=== PATIENT | female | born 1975 | race Caucasian/White ===

== ENCOUNTER 2019-01-13 09:03 | Emergency (ER) | payer SELFPAY ==
[~2019-01-13] VITALS: Ht 165.1 cm; Wt 72.6 kg
[2019-01-13 09:32] VITALS: BP 123/58
[2019-01-13] MEDS ORDERED: KETOROLAC 60 MG/2 ML VIAL. IM ONE (09:45)
--- NOTE | 2019-01-13 09:54 | RAD ---
RIGHT SHOULDER , 3 VIEWS Clinical Indication: Shoulder pain after falling down steps. Comparison: None. Findings: There is no acute fracture or dislocation. The acromioclavicular and glenohumeral joints are intact. Small marginal osteophyte of the inferior humeral head. The visualized lung is clear. There is no evidence of a displaced rib fracture. There is no soft tissue abnormality. IMPRESSION: No acute fracture or dislocation. Electronically signed by: Rob Manzano MD (01/13/2019 9:51 AM) [id number]
[2019-01-13] MEDS ORDERED: IBUP-1060 PO (10:13)
[2019-01-13] MEDS ORDERED: CYCL10TA2 PO (10:13)
--- NOTE | 2019-01-13 10:13 | PHYS DOC ---
Past Medical History Past Medical History: Seizure Additional Past Medical Histor: TBI Additional Past Surgical Histo: RT ANKLE, HYSTERECTOMY Alcohol Use: Occasionally Drug Use: Marijuana Adult General Chief Complaint Chief Complaint: SHOULDER INJURY HPI HPI Patient is a 43 year old right-handed female who presents with complaining of right shoulder injury. Patient states she lost her balance around 4:30 AM and had a fall from several stairs without loss of consciousness. Patient complaining of pain in right shoulder that did not get better with rest and deci ded to come to ER. Patient rated her pain 10 over 10 but states she was able to drive to the hospital. Patient denies other injuries and focal neurodeficit. Review of Systems Review of Systems Constitutional: Denies fever or chills [] Eyes: Denies change in visual acuity, redness, or eye pain [] HENT: Denies nasal congestion or sore throat [] Respiratory: Denies cough or shortness of breath [] Cardiovascular: No additional information not addressed in HPI [] GI: Denies abdominal pain, nausea, vomiting, bloody stools or diarrhea [] : Denies dysuria or hematuria [] Musculoskeletal: Denies back pain, reports joint pain [] Integument: Denies rash or skin lesions [] Neurologic: Denies headache, focal weakness or sensory changes [] Endocrine: Denies polyuria or polydipsia [] All other systems were reviewed and found to be within normal limits, except as documented in this note. Current Medications Current Medications Current Medications Medications (Trade) Dose Ordered Sig/Talisha Start Time Stop Time Status Last Admin Dose Admin Ketorolac Tromethamine (Toradol Im) 60 mg 1X ONCE 01/13/19 09:45 01/13/19 09:46 DC 01/13/19 09:44 60 MG Allergies Allergies Allergies Coded Allergies Type Severity Reaction Last Updated Verified nitrofurantoin Allergy Intermediate Hives 01/13/19 Yes tramadol Allergy Intermediate Hives 01/13/19 Yes Physical Exam Physical Exam Constitutional: Well developed, well nourished, mild distress, non-toxic appearance. [] HENT: Normocephalic, atraumatic. Eyes: PERRLA, EOMI, conjunctiva normal, no discharge. [] Neck: Normal range of motion, no tenderness, supple, no stridor. [] Cardiovascular:Heart rate regular rhythm, no murmur [] Lungs & Thorax: Bilateral breath sounds clear to auscultation [] Abdomen: Bowel sounds normal, soft, no tenderness, no masses, no pulsatile masses. [] Skin: Warm, dry, no erythema, no rash. [] Back: No tenderness, no CVA tenderness. [] Extremities: Right upper extremity without deformity or edema or ecchymosis, patient refused to move her right upper extremity, no neurovascular deficit, marked tenderness in anterior side of shoulder, no cyanosis, no clubbing, no edema. [] Neurologic: Alert and oriented X 3, no focal deficits noted. [] Psychologic: Affect normal, judgement normal, mood normal. [] Current Patient Data Vital Signs Vital Signs Date Time Temp Pulse Resp B/P (MAP) Pulse Ox O2 Delivery O2 Flow Rate FiO2 01/13/19 09:32 98.1 94 18 123/58 (79) 96 Room Air 98.1 EKG EKG [] Radiology/Procedures Radiology/Procedures [facility] [address] [place] [address] IMAGING REPORT Signed PATIENT: CARLA VÁSQUEZ ACCOUNT: [id number] : 1975 LOCATION: ER AGE: 43 SEX: F EXAM STATUS: REG ER ORD. PHYSICIAN: SYED DARBY MD REASON: right shoulder pain after falling down steps PROCEDURE: SHOULDER 2+V RIGHT RIGHT SHOULDER , 3 VIEWS Clinical Indication: Shoulder pain after falling down steps. Comparison: None. Findings: There is no acute fracture or dislocation. The acromioclavicular and glenohumeral joints are intact. Small marginal osteophyte of the inferior humeral head. The visualized lung is clear. There is no evidence of a displaced rib fracture. There is no soft tissue abnormality. IMPRESSION: No acute fracture or dislocation. Electronically signed by: Rob Phillips MD (01/13/2019 9:51 AM) [id number] DICTATED and SIGNED BY: ROB PHILLIPS MD DATE: 01/13/19 0951 Course & Med Decision Making Course & Med Decision Making Pertinent Imaging studies reviewed. (See chart for details) Evaluation of patient in 43-year-old of a fall several of his prior to arrival to ER and shoulder injury. Patient had unremarkable x-ray of shoulder and treated with Toradol IM and shoulder sling and was advice to follow-up with her primary care physician. Dragon Disclaimer Dragon Disclaimer This electronic medical record was generated, in whole or in part, using a voice recognition dictation system. Departure Departure Impression: Primary Impression: Sprain of right shoulder Additional Impression: Fall at home Disposition: HOME, SELF-CARE (at 1009) Condition: IMPROVED Referrals: NO PCP (PCP) Patient Instructions: Shoulder Sprain Additional Instructions: Drink plenty of liquids Follow-up with your primary care physician in 3-5 days Return to ER if not getting better Apply ice on the affected area Scripts Ibuprofen (IBUPROFEN) 800 Mg Tablet 800 MG PO PRN Q8HRS PRN for INFLAMMATION, #20 TAB Prov: SYED DARBY MD 01/13/19 Cyclobenzaprine Hcl (CYCLOBENZAPRINE HCL) 10 Mg Tablet 1 TAB PO TID, #21 TAB Prov: SYED DARBY MD 01/13/19 Problem Qualifiers Primary Impression: Sprain of right shoulder Encounter type: initial encounter Shoulder sprain type: unspecified sprain Qualified Codes: S43.401A - Unspecified sprain of right shoulder joint, initial encounter Additional Impression: Fall at home Encounter type: subsequent encounter Qualified Codes: W19.XXXD - Unsp ecified fall, subsequent encounter; Y92.009 - Unspecified place in unspecified non-institutional (private) residence as the place of occurrence of the external cause SYED DARBY MD Jan 13, 2019 10:13
== END 2019-01-13 10:21 | disposition home or self-care (01) ==
LOC: ER 09:03
DX: S43.491A Other sprain of right shoulder joint, initial encounter (principal); Z90.710 Acquired absence of both cervix and uterus; Z88.5 Allergy status to narcotic agent; Z88.8 Allergy status to other drugs, medicaments and biological substances; W10.9XXA Fall (on) (from) unspecified stairs and steps, initial encounter; Y93.89 Activity, other specified; Y92.009 Unspecified place in unspecified non-institutional (private) residence as the place of occurrence of the external cause; Y99.8 Other external cause status
CPT/HCPCS: 73030; 96372; 99284; J1885